=== PATIENT | female | born 1940 ===

== ENCOUNTER → 2017-05-15 10:18 | Day surgery (SDC) | payer MEDICARE, BC ==
[~2017-05-15 10:18] MED LIST: Acetaminophen TAB* 325 MG PO PRN; Diazepam TAB(*) 5 MG ONE; Heparin 2 UNITS/ML IVPREMIX* 1,000 ML IV ONE; Heparin 2 UNITS/ML IVPREMIX* 3,000 ML IV ONE; Iodixanol* (CONTRAST) 320 MG/ML 100 ML SDV ONE; Iohexol 350 (CONTRAST) 200 ML MDV IV ONE; Lidocaine 1% INJ* 10 MG/ML 30 ML SDV ONE; Midazolam* 1 MG/ML 10 ML VIAL (10 MG) ONE; NS 0.9% 1000 ML* 1,000 ML IV SCH; diPHENhydraMINE PO* 25 MG ONE; fentaNYL* 50 MCG/ML 2 ML VIAL (100 MCG VIAL) ONE
[2017-05-15 17:12] VITALS: BP 138/51
--- NOTE | 2017-05-16 16:36 | CATH ---
CC: Dr. Casi Elmore, [place] CARDIAC CATHETERIZATION REPORT: DATE OF PROCEDURE: 05/15/17 PROCEDURE: Right heart catheterization, left heart catheterization, left ventriculogram, coronary an giography. INDICATION: Cardiomyopathy. The patient is a 76-year-old female with a history of congestive heart failure. Her echocardiogram sh ows moderately reduced LV systolic function, ejection fraction of 35% with moderate mitral stenosis. Cardiac catheterization was recommended for further evaluation of her cardiac status. DESCRIPTION OF PROCEDURE: The patient was brought to the cardiac catheterization lab in a fasting st ate. Informed consent had been obtained prior to the procedure. All labs had been reviewed. The pat ient was placed supine on the catheterization table. Both femoral areas were cleaned and draped in t he usual fashion. 1% lidocaine was used for local anesthesia. The right femoral vein was entered vi a a modified Seldinger technique and an 8-Serbian sheath introducer was placed. The patient underwent right heart catheterization with balloon-tipped [place] catheter. The right femoral artery was en tered via modified Seldinger technique and a 6-Serbian sheath introducer was placed. The patient unde rwent left ventriculogram, coronary angiography using a 6-Serbian pigtail catheter, 6-Serbian JL4 nedra ter, and 6-Serbian JR4 catheter. At the end of the procedure, all sheaths and catheters were removed. The patient tolerated the procedure well and no complications. A total of 65 cc of Omnipaque dye w as used. A total of 7.9 minutes of fluoro time was used. FINDINGS: HEMODYNAMICS: Right atrial pressure with a mean of 6 mmHg, right ventricular pressure 24/1 with an e nd-diastolic pressure of 7. Pulmonary artery pressure 24/7 with a mean of 24. Pulmonary capillary w edge pressure of 6. Central aortic blood pressure 136/55 with a mean of 85. Left ventricular pressu re 137/1 with an end- diastolic pressure of 8. Oxygen saturation readings: Right atrial pressure 69%, pulmonary artery saturation 69%, central aort ic saturation 94%, cardiac output by Uriel 3.9 L per minute, cardiac output by thermodilution 3.3 L pe r minute. There is no evidence of mitral stenosis or aortic stenosis. LEFT VENTRICULOGRAM: Left ventricle was overall normal in size. Overall systolic function of the le ft ventricle is mildly to moderately reduced, estimated ejection fraction of 40%. There is global hy pokinesis. There is no mitral regurgitation. There is severe mitral annular calcification. Aortic v alve and ascending aorta appeared normal. CORONARY ARTERIES: 1. Left main artery: The left main was normal in size. It bifurcated into the LAD, ramus artery, a nd circumflex artery. There was no evidence of stenosis. 2. Left anterior descending artery: The LAD was normal in size. It gave off 2 diagonal vessels. T here was no evidence of stenosis. 3. Ramus artery: The ramus artery was a small vessel. There was no evidence of stenosis. 4. Left circumflex artery: The circumflex artery was normal in size. It gave off 1 obtuse marginal branch. There was no evidence of stenosis. 5. Right coronary artery: The RCA was a dominant vessel, given off the PDA in the posterolateral br anch. There was no evidence of stenosis. IMPRESSION: 1. Uyjs-di-wcgkgmtn cardiomyopathy with ejection fraction of 40%. 2. No evidence of aortic stenosis or mitral stenosis. 3. Normal coronary arteries. RECOMMENDATION: The patient will continue on maximum medical therapy. I will see the patient in [facility] for further evaluation of her cardiomyopathy. [id number]/[facility] #: [id number]
== END | disposition home or self-care (01) ==
LOC: CHICATH 10:18
PROVIDERS: ATTEND Specialist
DX: I42.9 Cardiomyopathy, unspecified (principal); I34.9 Nonrheumatic mitral valve disorder, unspecified; I44.7 Left bundle-branch block, unspecified; R07.9 Chest pain, unspecified; I50.9 Heart failure, unspecified; R94.31 Abnormal electrocardiogram [ECG] [EKG]; E11.9 Type 2 diabetes mellitus without complications; Z79.84 Long term (current) use of oral hypoglycemic drugs; I10 Essential (primary) hypertension; E78.5 Hyperlipidemia, unspecified; K21.9 Gastro-esophageal reflux disease without esophagitis; J98.4 Other disorders of lung
CPT/HCPCS: 36415; 82803; 93460; 99156; 99157; A9270-GY; C1769; C1887; J1644; J2250; J3010